=== PATIENT | female | born 1970 | race Caucasian/White ===

== ENCOUNTER 2018-07-21 08:57 | Emergency (ER) | payer MEDICAID ==
[~2018-07-21] VITALS: Ht 160 cm; Wt 80.0 kg
[~2018-07-21 08:57] MED LIST: CYCL-1 PO
[2018-07-21 09:04] VITALS: BP 143/83
--- NOTE | 2018-07-21 09:19 | NUR ---
soaking foot in iodine and a saline solution.
[2018-07-21] MEDS ORDERED: cephalexin 250mg capsule PO ONE (09:20)
[2018-07-21] MEDS ORDERED: sulfamethoxazole/trimethoprim DS (800/160mg) tablet PO ONE (09:20)
[2018-07-21] MEDS ORDERED: CEPH-572 PO (09:21)
[2018-07-21] MEDS ORDERED: SULF1TAB49 PO (09:21)
[2018-07-21] MEDS ORDERED: ibuprofen 200mg tablet PO ONE (09:50)
== END 2018-07-21 09:45 | disposition home or self-care (01) ==
LOC: ER 08:57
DX: L03.116 Cellulitis of left lower limb (principal); F17.200 Nicotine dependence, unspecified, uncomplicated
CPT/HCPCS: 99284

== ENCOUNTER 2018-07-29 06:59 | Emergency (ER) | payer MEDICAID ==
[~2018-07-29] VITALS: Ht 160 cm; Wt 90.8 kg
[~2018-07-29 06:59] MED LIST changes: +CEPH-572 PO; +SULF1TAB49 PO
[2018-07-29 07:21] VITALS: BP 133/78
--- NOTE | 2018-07-29 07:51 | NUR ---
PATIENT AMBULATORY TO ER #8 WITH REQUEST FOR WOUND RE-CHECK. STATES SHE COMPLETED ROUND OF ANTIBIOTICS AND IS CONCERNED BECAUSE WOUND IS NOT COMPLETELY HEALED. REDNESS NOTED TO LEFT LATERAL FOOT AND 2 BLISTERS NOTED ON LEFT TOES 3-4. PAIN RATED 5/10.
[2018-07-29] MEDS ORDERED: CEPH-572 PO (08:09)
[2018-07-29] MEDS ORDERED: SULF1TAB49 PO (08:09)
== END 2018-07-29 08:20 | disposition home or self-care (01) ==
LOC: ER 07:00
DX: L03.116 Cellulitis of left lower limb (principal); Z79.899 Other long term (current) drug therapy
CPT/HCPCS: 99283

== ENCOUNTER → 2018-08-22 | Emergency (ER) | payer MEDICAID ==
[~2018-08-22] VITALS: Ht 160 cm; Wt 88.9 kg
[~2018-08-22] MED LIST changes: -CEPH-572 PO; +DOXY50CA2 PO; -SULF1TAB49 PO
[2018-08-22 20:26] VITALS: BP 138/88
== END | disposition left against medical advice (07) ==
LOC: ER 20:11
DX: L03.116 Cellulitis of left lower limb (principal); M25.511 Pain in right shoulder; Z53.21 Procedure and treatment not carried out due to patient leaving prior to being seen by health care provider; Z79.899 Other long term (current) drug therapy

== ENCOUNTER 2018-08-25 06:10 | Emergency (ER) | payer MEDICAID ==
[~2018-08-25] VITALS: Ht 160 cm; Wt 89.0 kg
[~2018-08-25 06:10] MED LIST changes: -DOXY50CA2 PO
[2018-08-25] MEDS ORDERED: DOXY50CA2 PO (07:33)
[2018-08-25] MEDS ORDERED: ketorolac trometh inj. 60 MG/2 ML VIAL IM ONE (07:35)
[2018-08-25 07:39] VITALS: BP 135/87
== END 2018-08-25 08:35 | disposition home or self-care (01) ==
LOC: ER 06:11
DX: M25.511 Pain in right shoulder (principal); L03.116 Cellulitis of left lower limb; Z79.899 Other long term (current) drug therapy
CPT/HCPCS: 73030; 96372; 99283; J1885

== ENCOUNTER 2022-03-25 17:36 | Emergency (ER) | payer MEDICAID ==
[~2022-03-25] VITALS: Ht 160 cm; Wt 92.3 kg
[~2022-03-25 17:36] MED LIST changes: +DOXY50CA2 PO
[2022-03-25 18:15] VITALS: BP 141/88
--- NOTE | 2022-03-25 18:35 | NUR ---
VANESSA OLIVARES AT BEDSIDE.
[2022-03-25] MEDS ORDERED: IBUP-1984 PO (18:52)
== END 2022-03-25 19:19 | disposition home or self-care (01) ==
LOC: ER 17:37
DX: R60.0 Localized edema (principal); Z79.899 Other long term (current) drug therapy
CPT/HCPCS: 93971; 99284